=== PATIENT | female | born 1940 | race Caucasian/White ===

== ENCOUNTER 2018-06-26 14:33 | Inpatient (IN) | payer MEDICARE, OTHER, BC ==
[2018-06-26] MEDS: NALOXONE 2 MG SYG IV (14:51)
[2018-06-26 15:04] LABS: ADD MAN DIFF? NO
[2018-06-26 15:16] LABS: BASOPHIL # 0.1 10^3/ul (0.0-0.1); BASOPHILS % 0.7 % (0.0-2.0); EOSINOPHILS % 0.4 % (0.0-7.0); HEMATOCRIT 32.9 % (37.0-47.0); HEMOGLOBIN 10.1 g/dl (12.0-16.0); LYMPHOCYTES # 1.3 10^3/ul (0.8-2.9); LYMPHOCYTES % 17.9 % (15.0-51.0); MEAN CORPUSCULAR HEMOGLOBIN 30.1 pg (29.0-33.0); MEAN CORPUSCULAR HGB CONC 30.7 g/dl (32.0-37.0); MEAN CORPUSCULAR VOLUME 97.9 fl (82.0-101.0); MEAN PLATELET VOLUME 11.5 fl (7.4-10.4); MONOCYTE # 0.6 10^3/ul (0.3-0.9); NEUTROPHILS % 71.3 % (39.0-77.0); PLATELET COUNT 179 10^3/UL (140-415); RED BLOOD COUNT 3.36 10^6/ul (4.20-5.40); RED CELL DISTRIBUTION WIDTH 13.7 % (11.5-14.5)
[2018-06-26] MEDS: NALOXONE (0.4 MG/ML) INJ IV ×3 (15:24→23:32)
[2018-06-26 15:26] LABS: ALANINE AMINOTRANSFERASE 11 IU/L (13-69); ALBUMIN 3.2 g/dl (3.3-4.9); ALBUMIN/GLOBULIN RATIO 1.03; ALKALINE PHOSPHATASE 98 IU/L (42-121); ANION GAP 9 (5-13); ASPARTATE AMINO TRANSFERASE 15 IU/L (15-46); BILIRUBIN,INDIRECT 0.2 mg/dl (0-1.1); BILIRUBIN,TOTAL 0.2 mg/dl (0.2-1.3); BLOOD UREA NITROGEN 33 mg/dl (7-20); CALCIUM 8.8 mg/dl (8.4-10.2); CARBON DIOXIDE 20 mmol/L (21-31); CHLORIDE 112 mmol/L (97-110); CREATININE 1.58 mg/dl (0.44-1.00); GLUCOSE 169 mg/dl (70-220); SODIUM 141 mmol/L (135-144); TOTAL PROTEIN 6.3 g/dl (6.1-8.1)
[2018-06-26 15:30] LABS: ETHANOL < 10.0 mg/dl (0-0); POTASSIUM 6.5 mmol/L (3.5-5.1)
[2018-06-26] MEDS: SODIUM CHLORIDE 0.9% 1L BAG IV* (16:14)
[2018-06-26] MEDS: CEFEPIME 2GM/50 ML (PMX) 50 ML IVPB (16:14)
[2018-06-26 16:27] LABS: LACTIC ACID 0.6 mmol/L (0.5-2.0)
[2018-06-26 16:27] LABS: ADD UMIC YES; UR ASCORBIC ACID NEGATIVE (NEGATIVE); UR BACTERIA MANY /HPF (NONE SEEN); UR BILIRUBIN (Dip) NEGATIVE (NEGATIVE); UR BLOOD (Dip) NEGATIVE (NEGATIVE); UR CLARITY SLIGHTLY CLOUDY (CLEAR); UR COLOR YELLOW (YELLOW); UR GLUCOSE (Dip) 1+ mg/dL (NEGATIVE); UR KETONES (Dip) NEGATIVE (NEGATIVE); UR LEUKOCYTE ESTERASE (Dip) 1+ Leu/ul (NEGATIVE); UR NITRITE (Dip) POSITIVE (NEGATIVE); UR RBC 1 /HPF (0-5); UR SPECIFIC GRAVITY (Dip) 1.009 (1.003-1.030); UR TOTAL PROTEIN (Dip) 2+ mg/dl (NEGATIVE); UR UROBILINOGEN (Dip) NEGATIVE (NEGATIVE); UR WBC 114 /HPF (0-5)
[2018-06-26 16:45] LABS: AMPHETAMINE/METHAMPHETAMINE Negative (NEGATIVE); BARBITURATES Negative (NEGATIVE); BENZODIAZEPINES Negative (NEGATIVE); CANNABINOIDS Negative (NEGATIVE); COCAINE Negative (NEGATIVE); OPIATES Negative (NEGATIVE)
[2018-06-26] MEDS ORDERED: DEXTROSE 50% 50 ML SYRINGE IV (17:00)
[2018-06-26] MEDS: ALBUTEROL 0.5% (NEB) 2.5 MG/0.5 ML AMP INH (17:13)
[2018-06-26] MEDS: DEXTROSE 50% 50 ML SYRINGE IV (17:16)
[2018-06-26] MEDS: INSULIN REGULAR, HUMAN 100 UNIT/1 ML 3ML VIAL IVP (17:18)
[2018-06-26] MEDS ORDERED: ONDANSETRON 4 MG INJ IV (18:00)
[2018-06-26] MEDS ORDERED: ACETAMINOPHEN 325 MG TAB PO (18:00)
[2018-06-26] MEDS ORDERED: NACL 0.9% 3 ML SYG IV (19:00)
[2018-06-26] MEDS ORDERED: HYDROCODONE/APAP (5/325) TAB PO (19:00)
[2018-06-26] MEDS ORDERED: NITROGLYCERIN (SL) 0.4 MG TAB SL (19:00)
[2018-06-26] MEDS ORDERED: morphine 2 MG INJ IV (19:00)
[2018-06-26] MEDS ORDERED: DOCUSATE SODIUM 100 MG CAP PO (19:00)
[2018-06-26] MEDS ORDERED: MAGNESIUM HYDROXIDE 30ML CUP PO (19:00)
[2018-06-26 19:16] LABS: AADO2 Arterial 496.9 mmHg (7.0-24.0); Allen Test ACCEPTAB; Arterial Base Excess -6.2 mmol/L (-3.0-3); Arterial Blood Gas Oxygen Sat 98.1 mmHG (95.0-100.0); Arterial COHb 0.6 % (0.0-3.0); Arterial Fraction of Oxyhgb 97.2 % (93.0-99.0); Arterial HCO3 21.8 mmol/L (22.0-26.0); Arterial MetHb 0.3 % (0.0-1.5); Arterial Total Hemglobin 9.9 g/dl (12.0-18.0); Arterial pCO2 56.5 mmhg (35-45); MODE MASK - NRB; Site Right Radial
[2018-06-26 19:26] LABS: LACTIC ACID 1.1 mmol/L (0.5-2.0)
[2018-06-26] MEDS: ATORVASTATIN 20 MG TAB PO (21:00)
[2018-06-26] MEDS: SOD CHLORIDE 0.9% 1,000 ML IV ×2 (21:01→23:22)
[2018-06-26] MEDS: LORAZEPAM 2 MG INJ IV (21:18)
[2018-06-26] MEDS: LACTULOSE 30ML CUP PO (22:00)
[2018-06-26 22:01] LABS: FREE T4 (FREE THYROXINE) 1.19 ng/dl (0.78-2.44)
[2018-06-26 22:37] LABS: LACTIC ACID 0.6 mmol/L (0.5-2.0)
[2018-06-26 22:38] LABS: ANION GAP 6 (5-13); BLOOD UREA NITROGEN 31 mg/dl (7-20); CALCIUM 8.8 mg/dl (8.4-10.2); CARBON DIOXIDE 22 mmol/L (21-31); CHLORIDE 113 mmol/L (97-110); CREATININE 1.41 mg/dl (0.44-1.00); GLUCOSE 137 mg/dl (70-220); POTASSIUM 5.6 mmol/L (3.5-5.1); SODIUM 141 mmol/L (135-144)
[2018-06-26 22:39] LABS: INR 0.93; PROTIME 12.5 Sec (11.9-14.9)
[2018-06-26 22:59] LABS: AADO2 Arterial 226.2 mmHg (7.0-24.0); Allen Test ACCEPTAB; Arterial Base Excess -8.1 mmol/L (-3.0-3); Arterial Blood Gas Oxygen Sat 97.9 mmHG (95.0-100.0); Arterial COHb 0.1 % (0.0-3.0); Arterial Fraction of Oxyhgb 97.7 % (93.0-99.0); Arterial HCO3 19.8 mmol/L (22.0-26.0); Arterial MetHb 0.1 % (0.0-1.5); Arterial pCO2 52.3 mmhg (35-45); Blood Gas IEPAP 18/5; Blood Gas PS 13; MODE MASK - BIPAP; Site Left Radial
[2018-06-26] MEDS: hydrALAzine 20 MG INJ IV (23:26)
[2018-06-26] MEDS: MAGNESIUM HYDROXIDE 30ML CUP PO (23:27)
[2018-06-26] MEDS: BISACODYL 10 MG SUPP PR (23:32)
[2018-06-27 00:09] LABS: ADD MAN DIFF? NO
[2018-06-27 00:12] LABS: BASOPHIL # 0.1 10^3/ul (0.0-0.1); BASOPHILS % 0.7 % (0.0-2.0); EOSINOPHILS % 0.4 % (0.0-7.0); HEMATOCRIT 31.9 % (37.0-47.0); HEMOGLOBIN 9.9 g/dl (12.0-16.0); LYMPHOCYTES # 1.3 10^3/ul (0.8-2.9); LYMPHOCYTES % 14.2 % (15.0-51.0); MEAN CORPUSCULAR HEMOGLOBIN 30.1 pg (29.0-33.0); MEAN PLATELET VOLUME 11.2 fl (7.4-10.4); MONOCYTE # 0.8 10^3/ul (0.3-0.9); MONOCYTES % 8.5 % (0.0-11.0); NEUTROPHIL # 6.9 10^3/ul (1.6-7.5); NEUTROPHILS % 75.2 % (39.0-77.0); PLATELET COUNT 192 10^3/UL (140-415); RED BLOOD COUNT 3.29 10^6/ul (4.20-5.40); RED CELL DISTRIBUTION WIDTH 13.7 % (11.5-14.5)
[2018-06-27 00:12] LABS: WHITE BLOOD COUNT 9.2 10^3/ul (4.8-10.8)
[2018-06-27 00:20] LABS: Allen Test ACCEPTAB; Arterial Base Excess -5.3 mmol/L (-3.0-3); Arterial Blood Gas Oxygen Sat 97.7 mmHG (95.0-100.0); Arterial COHb 0.4 % (0.0-3.0); Arterial Fraction of Oxyhgb 97.1 % (93.0-99.0); Arterial HCO3 19.7 mmol/L (22.0-26.0); Arterial MetHb 0.2 % (0.0-1.5); Arterial Total Hemglobin 10.8 g/dl (12.0-18.0); Arterial pCO2 36.7 mmhg (35-45); Blood Gas IEPAP 22/6; Blood Gas PS 16; MODE MASK - BIPAP; Site Left Radial
[2018-06-27 00:31] LABS: ANION GAP 9 (5-13); BLOOD UREA NITROGEN 32 mg/dl (7-20); CALCIUM 8.7 mg/dl (8.4-10.2); CARBON DIOXIDE 20 mmol/L (21-31); CHLORIDE 113 mmol/L (97-110); CREATININE 1.36 mg/dl (0.44-1.00); GLUCOSE 149 mg/dl (70-220); POTASSIUM 5.7 mmol/L (3.5-5.1); SODIUM 142 mmol/L (135-144)
[2018-06-27] MEDS: LACTULOSE 30ML CUP PO ×3 (05:13→21:54)
[2018-06-27] MEDS: LEVOFLOXACIN 750MG/D5W (PMX) 150 ML IVPB (05:39)
[2018-06-27] MEDS: PANTOPRAZOLE 40 MG INJ IV (05:39)
[2018-06-27 05:43] LABS: ADD MAN DIFF? NO
[2018-06-27 05:59] LABS: WHITE BLOOD COUNT 7.5 10^3/ul (4.8-10.8)
[2018-06-27 05:59] LABS: BASOPHIL # 0.1 10^3/ul (0.0-0.1); BASOPHILS % 0.7 % (0.0-2.0); HEMATOCRIT 28.5 % (37.0-47.0); LYMPHOCYTES # 1.1 10^3/ul (0.8-2.9); LYMPHOCYTES % 14.1 % (15.0-51.0); MEAN CORPUSCULAR HEMOGLOBIN 30.5 pg (29.0-33.0); MEAN CORPUSCULAR HGB CONC 31.6 g/dl (32.0-37.0); MEAN CORPUSCULAR VOLUME 96.6 fl (82.0-101.0); MEAN PLATELET VOLUME 11.6 fl (7.4-10.4); MONOCYTE # 0.4 10^3/ul (0.3-0.9); MONOCYTES % 4.9 % (0.0-11.0); NEUTROPHILS % 79.2 % (39.0-77.0); PLATELET COUNT 171 10^3/UL (140-415); RED BLOOD COUNT 2.95 10^6/ul (4.20-5.40); RED CELL DISTRIBUTION WIDTH 13.5 % (11.5-14.5)
[2018-06-27 06:24] LABS: HEMOGLOBIN A1C 6.7 % (0-5.9)
[2018-06-27 06:25] LABS: ANION GAP 6 (5-13); BLOOD UREA NITROGEN 30 mg/dl (7-20); CALCIUM 8.7 mg/dl (8.4-10.2); CARBON DIOXIDE 21 mmol/L (21-31); CHLORIDE 116 mmol/L (97-110); CREATININE 1.27 mg/dl (0.44-1.00); GLUCOSE 149 mg/dl (70-220); MAGNESIUM 2.1 mg/dl (1.7-2.5); PHOSPHORUS 4.1 mg/dl (2.5-4.9); POTASSIUM 5.9 mmol/L (3.5-5.1); SODIUM 143 mmol/L (135-144)
[2018-06-27 06:27] LABS: CHOLESTEROL 128 mg/dl (100-200); LACTIC ACID 0.6 mmol/L (0.5-2.0)
[2018-06-27 06:27] LABS: CHOL/HDL RATIO 2.7 RATIO; HDL CHOLESTEROL 46 mg/dl (33-92); LDL CHOLESTEROL,CALCULATED 60 mg/dl; TRIGLYCERIDES 111 mg/dl (0-149)
[2018-06-27 06:50] LABS: THYROID STIMULATING HORMONE 0.402 MIU/L (0.465-4.680)
[2018-06-27] MEDS ORDERED: NON-FORMULARY/PATIENT OWN MED (Multivitamin with Minerals (Multivitamins with Minerals) 1 PO (09:00)
[2018-06-27] MEDS: MULTIVITAMINS/MINERALS TAB PO (09:45)
[2018-06-27] MEDS: ZINC SULFATE 220 MG CAP PO (09:45)
[2018-06-27] MEDS: NA POLYST SULFON 15 GM/60 ML BTL PO ×2 (09:45→16:34)
[2018-06-27] MEDS ORDERED: TIZANIDINE 2 MG TAB PO (10:30)
[2018-06-27 10:41] LABS: AADO2 Arterial 134.2 mmHg (7.0-24.0); Allen Test ACCEPTAB; Arterial Base Excess -5.7 mmol/L (-3.0-3); Arterial Blood Gas Oxygen Sat 92.7 mmHG (95.0-100.0); Arterial COHb 0.1 % (0.0-3.0); Arterial Fraction of Oxyhgb 92.3 % (93.0-99.0); Arterial HCO3 18.3 mmol/L (22.0-26.0); Arterial MetHb 0.3 % (0.0-1.5); Arterial Total Hemglobin 10.8 g/dl (12.0-18.0); Arterial pCO2 30.9 mmhg (35-45); MODE NASAL CANNULA; Site Right Radial
[2018-06-27] MEDS: CALCIUM GLUCONATE 10% 1 GM in DEXTROSE 5% 100 ML IVPB ×2 (10:45→18:56)
[2018-06-27] MEDS: AMLODIPINE 10 MG TAB PO (10:47)
[2018-06-27] MEDS: ASCORBIC ACID 500 MG TAB PO (10:48)
[2018-06-27] MEDS: ALBUTEROL/IPRATROPIUM (NEB) 3 ML AMP HHN (11:08)
[2018-06-27] MEDS: ONDANSETRON 4 MG INJ IV (11:19)
[2018-06-27] MEDS: LORAZEPAM 2 MG INJ IV (11:48)
[2018-06-27] MEDS: SOD CHLORIDE 0.9% 1,000 ML IV (11:53)
[2018-06-27 13:23] LABS: LACTIC ACID 0.8 mmol/L (0.5-2.0)
[2018-06-27 13:26] LABS: ANION GAP 7 (5-13); BLOOD UREA NITROGEN 25 mg/dl (7-20); CALCIUM 9.3 mg/dl (8.4-10.2); CARBON DIOXIDE 22 mmol/L (21-31); CHLORIDE 116 mmol/L (97-110); CREATININE 1.19 mg/dl (0.44-1.00); GLUCOSE 189 mg/dl (70-220); POTASSIUM 5.5 mmol/L (3.5-5.1); SODIUM 145 mmol/L (135-144)
[2018-06-27] MEDS: SOD CHLORIDE 0.45% 1,000 ML IV (16:34)
[2018-06-27] MEDS: CEFEPIME 2GM/50 ML (PMX) 50 ML IVPB ×2 (17:26→21:02)
[2018-06-27 17:34] LABS: CREATINE KINASE 88 IU/L (23-200)
[2018-06-27 17:35] LABS: LACTIC ACID 0.8 mmol/L (0.5-2.0)
[2018-06-27] MEDS: LINEZOLID 600 MG/D5W (PMX) 300 ML IVPB ×2 (21:00→23:54)
[2018-06-27] MEDS: MAGNESIUM HYDROXIDE 30ML CUP PO (21:02)
[2018-06-27] MEDS: BISACODYL 10 MG SUPP PR (21:02)
[2018-06-27] MEDS: TERAZOSIN 2 MG CAP PO (21:03)
[2018-06-27] MEDS: ATORVASTATIN 20 MG TAB PO (21:03)
[2018-06-27] MEDS: NA PHOSPHATE/BIPHOS 133 ML ENEMA PR (22:46)
[2018-06-27] MEDS: hydrALAzine 20 MG INJ IV (23:55)
[2018-06-28] MEDS: hydrALAzine 20 MG INJ IV ×2 (04:07→12:00)
[2018-06-28] MEDS: SOD CHLORIDE 0.45% 1,000 ML IV ×3 (05:20→18:40)
[2018-06-28 05:31] LABS: ADD MAN DIFF? NO
[2018-06-28 05:35] LABS: BASOPHILS % 0.5 % (0.0-2.0); EOSINOPHILS % 0.1 % (0.0-7.0); HEMATOCRIT 27.2 % (37.0-47.0); HEMOGLOBIN 8.8 g/dl (12.0-16.0); LYMPHOCYTES # 0.9 10^3/ul (0.8-2.9); LYMPHOCYTES % 10.1 % (15.0-51.0); MEAN CORPUSCULAR HEMOGLOBIN 30.4 pg (29.0-33.0); MEAN CORPUSCULAR HGB CONC 32.4 g/dl (32.0-37.0); MEAN CORPUSCULAR VOLUME 94.1 fl (82.0-101.0); MEAN PLATELET VOLUME 11.6 fl (7.4-10.4); MONOCYTE # 0.6 10^3/ul (0.3-0.9); MONOCYTES % 7.3 % (0.0-11.0); NEUTROPHIL # 6.9 10^3/ul (1.6-7.5); NEUTROPHILS % 81.2 % (39.0-77.0); PLATELET COUNT 158 10^3/UL (140-415); RED BLOOD COUNT 2.89 10^6/ul (4.20-5.40); RED CELL DISTRIBUTION WIDTH 13.2 % (11.5-14.5)
[2018-06-28 05:35] LABS: WHITE BLOOD COUNT 8.5 10^3/ul (4.8-10.8)
[2018-06-28] MEDS: PANTOPRAZOLE (EC) 40 MG TAB PO (05:56)
[2018-06-28] MEDS: LACTULOSE 30ML CUP PO ×3 (05:56→21:34)
[2018-06-28 06:30] LABS: ANION GAP 5 (5-13); BLOOD UREA NITROGEN 22 mg/dl (7-20); CARBON DIOXIDE 25 mmol/L (21-31); CHLORIDE 111 mmol/L (97-110); CREATININE 1.09 mg/dl (0.44-1.00); GLUCOSE 233 mg/dl (70-220); POTASSIUM 4.5 mmol/L (3.5-5.1); SODIUM 141 mmol/L (135-144)
[2018-06-28 06:38] LABS: CK-MB 1.56 ng/ml (0.0-2.4)
[2018-06-28 06:43] LABS: CK INDEX 1.6; CREATINE KINASE 95 IU/L (23-200)
[2018-06-28 06:50] LABS: TROPONIN-I 0.379 ng/ml (0.000-0.120)
[2018-06-28 06:57] LABS: THYROID STIMULATING HORMONE 0.255 MIU/L (0.465-4.680)
[2018-06-28] MEDS: MULTIVITAMINS/MINERALS TAB PO (08:36)
[2018-06-28] MEDS: ZINC SULFATE 220 MG CAP PO (08:36)
[2018-06-28] MEDS: ASCORBIC ACID 500 MG TAB PO (08:37)
[2018-06-28] MEDS: AMLODIPINE 10 MG TAB PO (08:37)
[2018-06-28] MEDS: ENOXAPARIN 100 MG/ML SYG SC ×2 (09:02→21:37)
[2018-06-28] MEDS: LINEZOLID 600 MG/D5W (PMX) 300 ML IVPB ×2 (10:14→22:27)
[2018-06-28] MEDS: CEFEPIME 2GM/50 ML (PMX) 50 ML IVPB ×2 (10:14→21:29)
[2018-06-28 11:10] LABS: TROPONIN-I 0.385 ng/ml (0.000-0.120)
[2018-06-28 15:43] LABS: TROPONIN-I 0.362 ng/ml (0.000-0.120)
[2018-06-28] MEDS: MAGNESIUM HYDROXIDE 30ML CUP PO (19:00)
[2018-06-28] MEDS: BISACODYL 10 MG SUPP PR (19:00)
[2018-06-28] MEDS: ISOSORBIDE DINITRATE 20 MG TAB PO (21:00)
[2018-06-28 21:14] LABS: TROPONIN-I 0.349 ng/ml (0.000-0.120)
[2018-06-28] MEDS: ATORVASTATIN 20 MG TAB PO (21:35)
[2018-06-28] MEDS: TERAZOSIN 2 MG CAP PO (21:35)
[2018-06-29] MEDS: ALBUTEROL/IPRATROPIUM (NEB) 3 ML AMP HHN ×2 (00:12→05:49)
[2018-06-29] MEDS: PANTOPRAZOLE (EC) 40 MG TAB PO (05:30)
[2018-06-29] MEDS: LACTULOSE 30ML CUP PO ×3 (05:30→22:30)
[2018-06-29] MEDS: SOD CHLORIDE 0.45% 1,000 ML IV ×2 (05:31→21:33)
[2018-06-29 06:07] LABS: ADD MAN DIFF? NO
[2018-06-29 06:10] LABS: BASOPHILS % 0.5 % (0.0-2.0); EOSINOPHILS % 0.2 % (0.0-7.0); HEMATOCRIT 25.4 % (37.0-47.0); HEMOGLOBIN 8.3 g/dl (12.0-16.0); LYMPHOCYTES # 1.3 10^3/ul (0.8-2.9); LYMPHOCYTES % 19.6 % (15.0-51.0); MEAN CORPUSCULAR HEMOGLOBIN 30.5 pg (29.0-33.0); MEAN CORPUSCULAR HGB CONC 32.7 g/dl (32.0-37.0); MEAN CORPUSCULAR VOLUME 93.4 fl (82.0-101.0); MEAN PLATELET VOLUME 12.1 fl (7.4-10.4); MONOCYTE # 0.8 10^3/ul (0.3-0.9); MONOCYTES % 12.5 % (0.0-11.0); NEUTROPHIL # 4.4 10^3/ul (1.6-7.5); NEUTROPHILS % 66.6 % (39.0-77.0); PLATELET COUNT 149 10^3/UL (140-415); RED BLOOD COUNT 2.72 10^6/ul (4.20-5.40); RED CELL DISTRIBUTION WIDTH 13.4 % (11.5-14.5)
[2018-06-29 06:10] LABS: WHITE BLOOD COUNT 6.6 10^3/ul (4.8-10.8)
[2018-06-29 07:00] LABS: TROPONIN-I 0.407 ng/ml (0.000-0.120)
[2018-06-29 08:14] LABS: ANION GAP 7 (5-13); BLOOD UREA NITROGEN 22 mg/dl (7-20); CARBON DIOXIDE 24 mmol/L (21-31); CHLORIDE 111 mmol/L (97-110); GLUCOSE 220 mg/dl (70-220); POTASSIUM 4.2 mmol/L (3.5-5.1); SODIUM 142 mmol/L (135-144)
[2018-06-29 08:15] LABS: CALCIUM 8.8 mg/dl (8.4-10.2); CREATININE 1.16 mg/dl (0.44-1.00)
[2018-06-29] MEDS: MULTIVITAMINS/MINERALS TAB PO (08:15)
[2018-06-29] MEDS: AMLODIPINE 10 MG TAB PO (08:15)
[2018-06-29] MEDS: ZINC SULFATE 220 MG CAP PO (08:15)
[2018-06-29] MEDS: ASCORBIC ACID 500 MG TAB PO (08:16)
[2018-06-29] MEDS: ISOSORBIDE DINITRATE 20 MG TAB PO ×2 (08:16→21:33)
[2018-06-29] MEDS: ENOXAPARIN 100 MG/ML SYG SC ×2 (08:18→21:58)
[2018-06-29] MEDS: CEFEPIME 2GM/50 ML (PMX) 50 ML IVPB ×2 (08:27→21:39)
[2018-06-29] MEDS: LINEZOLID 600 MG/D5W (PMX) 300 ML IVPB ×2 (09:32→22:30)
[2018-06-29] MEDS: ASPIRIN (EC) 81 MG TAB PO (09:36)
[2018-06-29 11:25] LABS: AADO2 Arterial 42.7 mmHg (7.0-24.0); Allen Test ACCEPTAB; Arterial Base Excess -3.3 mmol/L (-3.0-3); Arterial Blood Gas Oxygen Sat 95.8 mmHG (95.0-100.0); Arterial COHb 0.3 % (0.0-3.0); Arterial Fraction of Oxyhgb 95.2 % (93.0-99.0); Arterial HCO3 18.4 mmol/L (22.0-26.0); Arterial MetHb 0.3 % (0.0-1.5); Arterial pCO2 22.8 mmhg (35-45); MODE ROOM AIR; Site Right Radial
[2018-06-29] MEDS: LORAZEPAM 2 MG INJ IV ×2 (12:03→21:40)
[2018-06-29 12:21] LABS: TROPONIN-I 0.343 ng/ml (0.000-0.120)
[2018-06-29] MEDS: MAGNESIUM HYDROXIDE 30ML CUP PO (18:55)
[2018-06-29] MEDS: BISACODYL 10 MG SUPP PR (18:55)
[2018-06-29 19:37] LABS: TROPONIN-I 0.318 ng/ml (0.000-0.120)
[2018-06-29] MEDS: TERAZOSIN 2 MG CAP PO (21:32)
[2018-06-29] MEDS: ATORVASTATIN 20 MG TAB PO (21:32)
[2018-06-30 03:12] LABS: TROPONIN-I 0.338 ng/ml (0.000-0.120)
[2018-06-30] MEDS: LACTULOSE 30ML CUP PO ×3 (05:53→21:49)
[2018-06-30] MEDS: PANTOPRAZOLE (EC) 40 MG TAB PO (05:54)
[2018-06-30 06:19] LABS: ADD MAN DIFF? NO
[2018-06-30 06:31] LABS: WHITE BLOOD COUNT 9.5 10^3/ul (4.8-10.8)
[2018-06-30 06:31] LABS: BASOPHIL # 0.1 10^3/ul (0.0-0.1); BASOPHILS % 0.6 % (0.0-2.0); EOSINOPHILS # 0.1 10^3/ul (0.0-0.5); EOSINOPHILS % 0.9 % (0.0-7.0); HEMATOCRIT 25.2 % (37.0-47.0); HEMOGLOBIN 8.1 g/dl (12.0-16.0); LYMPHOCYTES # 1.4 10^3/ul (0.8-2.9); MEAN CORPUSCULAR HEMOGLOBIN 30.1 pg (29.0-33.0); MEAN CORPUSCULAR HGB CONC 32.1 g/dl (32.0-37.0); MEAN CORPUSCULAR VOLUME 93.7 fl (82.0-101.0); MEAN PLATELET VOLUME 12.1 fl (7.4-10.4); MONOCYTES % 10.4 % (0.0-11.0); NEUTROPHIL # 6.9 10^3/ul (1.6-7.5); NEUTROPHILS % 72.4 % (39.0-77.0); PLATELET COUNT 158 10^3/UL (140-415); RED BLOOD COUNT 2.69 10^6/ul (4.20-5.40); RED CELL DISTRIBUTION WIDTH 13.2 % (11.5-14.5)
[2018-06-30] MEDS: hydrALAzine 20 MG INJ IV (06:40)
[2018-06-30 06:44] LABS: LACTIC ACID 0.8 mmol/L (0.5-2.0)
[2018-06-30 06:55] LABS: ANION GAP 8 (5-13); BLOOD UREA NITROGEN 20 mg/dl (7-20); CALCIUM 8.9 mg/dl (8.4-10.2); CARBON DIOXIDE 21 mmol/L (21-31); CHLORIDE 112 mmol/L (97-110); CREATININE 1.26 mg/dl (0.44-1.00); GLUCOSE 207 mg/dl (70-220); SODIUM 141 mmol/L (135-144)
[2018-06-30 07:10] LABS: PHOSPHORUS 3.2 mg/dl (2.5-4.9)
[2018-06-30 07:26] LABS: AADO2 Arterial 115.4 mmHg (7.0-24.0); Allen Test ACCEPTAB; Arterial Base Excess -2.6 mmol/L (-3.0-3); Arterial Blood Gas Oxygen Sat 91.1 mmHG (95.0-100.0); Arterial COHb 0.5 % (0.0-3.0); Arterial Fraction of Oxyhgb 90.4 % (93.0-99.0); Arterial HCO3 20.9 mmol/L (22.0-26.0); Arterial MetHb 0.3 % (0.0-1.5); Arterial pCO2 31.6 mmhg (35-45); MODE NASAL CANNULA; Site Right Radial
[2018-06-30] MEDS: MULTIVITAMINS/MINERALS TAB PO (09:26)
[2018-06-30] MEDS: ISOSORBIDE DINITRATE 20 MG TAB PO ×2 (09:27→21:31)
[2018-06-30] MEDS: ZINC SULFATE 220 MG CAP PO (09:27)
[2018-06-30] MEDS: AMLODIPINE 10 MG TAB PO (09:27)
[2018-06-30] MEDS: ENOXAPARIN 100 MG/ML SYG SC ×2 (09:30→21:37)
[2018-06-30] MEDS: ASPIRIN (EC) 81 MG TAB PO (09:34)
[2018-06-30] MEDS: ASCORBIC ACID 500 MG TAB PO (09:34)
[2018-06-30] MEDS: LINEZOLID 600 MG/D5W (PMX) 300 ML IVPB ×2 (09:35→22:16)
[2018-06-30] MEDS: LORAZEPAM 2 MG INJ IV ×2 (09:47→18:03)
[2018-06-30] MEDS: CEFEPIME 2GM/50 ML (PMX) 50 ML IVPB ×2 (09:48→21:30)
[2018-06-30 12:18] LABS: ADD MAN DIFF? NO
[2018-06-30 12:27] LABS: HEMATOCRIT 25.4 % (37.0-47.0); HEMOGLOBIN 8.3 g/dl (12.0-16.0); LYMPHOCYTES % 13.9 % (15.0-51.0); MEAN CORPUSCULAR HEMOGLOBIN 30.4 pg (29.0-33.0); MEAN CORPUSCULAR HGB CONC 32.7 g/dl (32.0-37.0); MEAN PLATELET VOLUME 12.2 fl (7.4-10.4); MONOCYTES % 9.2 % (0.0-11.0); NEUTROPHILS % 74.6 % (39.0-77.0); PLATELET COUNT 177 10^3/UL (140-415); RED BLOOD COUNT 2.73 10^6/ul (4.20-5.40); RED CELL DISTRIBUTION WIDTH 13.4 % (11.5-14.5)
[2018-06-30 12:28] LABS: BASOPHILS % 0.4 % (0.0-2.0); EOSINOPHILS # 0.1 10^3/ul (0.0-0.5); EOSINOPHILS % 1.2 % (0.0-7.0); LYMPHOCYTES # 1.3 10^3/ul (0.8-2.9); MONOCYTE # 0.8 10^3/ul (0.3-0.9); NEUTROPHIL # 6.7 10^3/ul (1.6-7.5)
[2018-06-30 13:44] LABS: OCCULT BLOOD STOOL POSITIVE (NEGATIVE)
[2018-06-30] MEDS: MAGNESIUM HYDROXIDE 30ML CUP PO (18:06)
[2018-06-30] MEDS: PANTOPRAZOLE 40 MG INJ IV (18:06)
[2018-06-30] MEDS: SUCRALFATE (100 MG/ML) 10ML CUP PO ×2 (18:06→21:30)
[2018-06-30] MEDS: BISACODYL 10 MG SUPP PR (18:07)
[2018-06-30] MEDS: SOD CHLORIDE 0.45% 1,000 ML IV ×2 (21:30→21:36)
[2018-06-30] MEDS: ATORVASTATIN 20 MG TAB PO (21:31)
[2018-06-30] MEDS: TERAZOSIN 2 MG CAP PO (21:40)
[2018-06-30] MEDS ORDERED: COLLAGENASE 5 GM (UD JAR) TOP (22:30)
[2018-06-30] MEDS: ONDANSETRON 4 MG INJ IV (22:37)
[2018-07-01] MEDS: LORAZEPAM 2 MG INJ IV (02:55)
[2018-07-01] MEDS: LACTULOSE 30ML CUP PO ×3 (05:17→22:00)
[2018-07-01 05:39] LABS: ADD MAN DIFF? NO
[2018-07-01 05:45] LABS: BASOPHILS % 0.5 % (0.0-2.0); EOSINOPHILS # 0.2 10^3/ul (0.0-0.5); EOSINOPHILS % 2.5 % (0.0-7.0); HEMATOCRIT 25.8 % (37.0-47.0); HEMOGLOBIN 8.2 g/dl (12.0-16.0); LYMPHOCYTES # 1.4 10^3/ul (0.8-2.9); LYMPHOCYTES % 15.8 % (15.0-51.0); MEAN CORPUSCULAR HEMOGLOBIN 30.1 pg (29.0-33.0); MEAN CORPUSCULAR HGB CONC 31.8 g/dl (32.0-37.0); MEAN CORPUSCULAR VOLUME 94.9 fl (82.0-101.0); MEAN PLATELET VOLUME 12.2 fl (7.4-10.4); MONOCYTES % 11.2 % (0.0-11.0); NEUTROPHIL # 6.1 10^3/ul (1.6-7.5); NEUTROPHILS % 69.4 % (39.0-77.0); PLATELET COUNT 172 10^3/UL (140-415); RED BLOOD COUNT 2.72 10^6/ul (4.20-5.40); RED CELL DISTRIBUTION WIDTH 13.3 % (11.5-14.5)
[2018-07-01 05:45] LABS: WHITE BLOOD COUNT 8.8 10^3/ul (4.8-10.8)
[2018-07-01] MEDS: PANTOPRAZOLE 40 MG INJ IV ×2 (05:51→17:22)
[2018-07-01 06:17] LABS: ANION GAP 8 (5-13); BLOOD UREA NITROGEN 20 mg/dl (7-20); CALCIUM 8.8 mg/dl (8.4-10.2); CARBON DIOXIDE 21 mmol/L (21-31); CHLORIDE 111 mmol/L (97-110); CREATININE 1.28 mg/dl (0.44-1.00); GLUCOSE 197 mg/dl (70-220); SODIUM 140 mmol/L (135-144)
[2018-07-01] MEDS: CEFEPIME 2GM/50 ML (PMX) 50 ML IVPB ×2 (09:09→22:03)
[2018-07-01] MEDS: AMLODIPINE 10 MG TAB PO (09:10)
[2018-07-01] MEDS: SUCRALFATE (100 MG/ML) 10ML CUP PO ×4 (09:10→20:38)
[2018-07-01] MEDS: LINEZOLID 600 MG/D5W (PMX) 300 ML IVPB ×2 (09:10→20:29)
[2018-07-01] MEDS: ISOSORBIDE DINITRATE 20 MG TAB PO ×2 (09:10→20:39)
[2018-07-01] MEDS: ZINC SULFATE 220 MG CAP PO (09:10)
[2018-07-01] MEDS: BALSAM PERU/CASTOR OIL 60 GM TUBE TOP (09:11)
[2018-07-01] MEDS: ASPIRIN (EC) 81 MG TAB PO (09:11)
[2018-07-01] MEDS: MULTIVITAMINS/MINERALS TAB PO (09:11)
[2018-07-01] MEDS: ASCORBIC ACID 500 MG TAB PO (09:11)
[2018-07-01] MEDS: COLLAGENASE 5 GM (UD JAR) TOP (09:11)
[2018-07-01] MEDS: ENOXAPARIN 100 MG/ML SYG SC ×2 (09:17→20:44)
[2018-07-01] MEDS: ONDANSETRON 4 MG INJ IV (10:08)
[2018-07-01] MEDS: ACETAMINOPHEN 325 MG TAB PO (10:20)
[2018-07-01] MEDS ORDERED: ALBUTEROL/IPRATROPIUM (NEB) 3 ML AMP NEB (11:00)
[2018-07-01] MEDS: INSULIN ASPART [NOVOLOG] 3 ML PEN SC ×3 (12:37→20:45)
[2018-07-01] MEDS: SOD CHLORIDE 0.45% 1,000 ML IV ×2 (13:20)
[2018-07-01] MEDS ORDERED: MAGNESIUM HYDROXIDE 30ML CUP PO (19:00)
[2018-07-01] MEDS: ATORVASTATIN 20 MG TAB PO (20:39)
[2018-07-01] MEDS: TERAZOSIN 2 MG CAP PO (20:39)
[2018-07-01] MEDS: traMADol 50 MG TAB PO (20:49)
[2018-07-02] MEDS: SOD CHLORIDE 0.45% 1,000 ML IV ×2 (02:40→15:48)
[2018-07-02] MEDS: ACCU-CHEK XX (02:43)
[2018-07-02 05:37] LABS: ADD MAN DIFF? NO
[2018-07-02 05:43] LABS: WHITE BLOOD COUNT 8.5 10^3/ul (4.8-10.8)
[2018-07-02 05:43] LABS: BASOPHILS % 0.5 % (0.0-2.0); EOSINOPHILS # 0.3 10^3/ul (0.0-0.5); EOSINOPHILS % 3.2 % (0.0-7.0); HEMATOCRIT 25.2 % (37.0-47.0); LYMPHOCYTES # 1.4 10^3/ul (0.8-2.9); LYMPHOCYTES % 16.5 % (15.0-51.0); MEAN CORPUSCULAR HEMOGLOBIN 30.1 pg (29.0-33.0); MEAN CORPUSCULAR HGB CONC 31.7 g/dl (32.0-37.0); MEAN CORPUSCULAR VOLUME 94.7 fl (82.0-101.0); MEAN PLATELET VOLUME 12.3 fl (7.4-10.4); MONOCYTE # 0.8 10^3/ul (0.3-0.9); MONOCYTES % 9.7 % (0.0-11.0); NEUTROPHIL # 5.9 10^3/ul (1.6-7.5); NEUTROPHILS % 69.5 % (39.0-77.0); PLATELET COUNT 161 10^3/UL (140-415); RED BLOOD COUNT 2.66 10^6/ul (4.20-5.40); RED CELL DISTRIBUTION WIDTH 13.2 % (11.5-14.5)
[2018-07-02 05:58] LABS: ANION GAP 6 (5-13); BLOOD UREA NITROGEN 20 mg/dl (7-20); CALCIUM 8.5 mg/dl (8.4-10.2); CARBON DIOXIDE 21 mmol/L (21-31); CHLORIDE 114 mmol/L (97-110); CREATININE 1.39 mg/dl (0.44-1.00); GLUCOSE 166 mg/dl (70-220); POTASSIUM 3.8 mmol/L (3.5-5.1); SODIUM 141 mmol/L (135-144)
[2018-07-02] MEDS: LACTULOSE 30ML CUP PO ×3 (06:00→22:19)
[2018-07-02] MEDS: PANTOPRAZOLE 40 MG INJ IV ×2 (06:18→17:12)
[2018-07-02] MEDS ORDERED: CEFAZOLIN 1 GM INJ (07:00)
[2018-07-02] MEDS ORDERED: CEFAZOLIN 1 GM/50 ML (PMX) 50 ML IVPB (07:23)
[2018-07-02] MEDS ORDERED: BUPIVACAINE 0.5% (SDV) 30 ML INJ (07:23)
[2018-07-02] MEDS ORDERED: LIDOCAINE 2% (MDV) 20 ML INJ (07:23)
[2018-07-02] MEDS ORDERED: SOD CHLORIDE 0.9% 500 ML (07:23)
[2018-07-02] MEDS ORDERED: MEPERIDINE 25 MG INJ IV (07:30)
[2018-07-02] MEDS ORDERED: ONDANSETRON 4 MG INJ IV (07:30)
[2018-07-02] MEDS: POLYMYXIN/BACITRACIN 1L IRRIG IRR (07:30)
[2018-07-02] MEDS ORDERED: DIPHENHYDRAMINE 50 MG INJ IV (07:30)
[2018-07-02] MEDS ORDERED: HYDROmorphONE 1 MG/5 ML IV SYRINGE IV ×2 (07:30)
[2018-07-02] MEDS ORDERED: PROPOFOL 40 ML (07:32)
[2018-07-02] MEDS ORDERED: MIDAZOLAM 1 MG/ML 2 ML INJ (07:32)
[2018-07-02] MEDS ORDERED: FENTAnyl 50 MCG/ML VIAL (07:32)
[2018-07-02] MEDS ORDERED: ONDANSETRON 4 MG INJ (07:32)
[2018-07-02] MEDS ORDERED: IODIXANOL LOCM 50 ML BTL (07:49)
[2018-07-02] MEDS: INSULIN ASPART [NOVOLOG] 3 ML PEN SC ×4 (08:00→22:57)
[2018-07-02] MEDS: BALSAM PERU/CASTOR OIL 60 GM TUBE TOP (09:00)
[2018-07-02] MEDS: COLLAGENASE 5 GM (UD JAR) TOP (09:00)
[2018-07-02] MEDS: HYDROmorphONE 1 MG/5 ML IV SYRINGE IV (09:23)
[2018-07-02] MEDS: SUCRALFATE (100 MG/ML) 10ML CUP PO ×4 (10:15→22:17)
[2018-07-02] MEDS: MULTIVITAMINS/MINERALS TAB PO (10:16)
[2018-07-02] MEDS: ASPIRIN (EC) 81 MG TAB PO (10:16)
[2018-07-02] MEDS: ZINC SULFATE 220 MG CAP PO (10:16)
[2018-07-02] MEDS: AMLODIPINE 10 MG TAB PO (10:19)
[2018-07-02] MEDS: ISOSORBIDE DINITRATE 20 MG TAB PO ×2 (10:19→22:19)
[2018-07-02] MEDS: ASCORBIC ACID 500 MG TAB PO (10:19)
[2018-07-02] MEDS: CEFEPIME 2GM/50 ML (PMX) 50 ML IVPB (10:24)
[2018-07-02] MEDS: LINEZOLID 600 MG/D5W (PMX) 300 ML IVPB ×2 (10:24→22:28)
[2018-07-02] MEDS: ONDANSETRON 4 MG INJ IV (10:44)
[2018-07-02] MEDS ORDERED: CEFAZOLIN 1 GM INJ IVPB (14:00)
[2018-07-02] MEDS: CEFTRIAXONE 1 GM/50 ML (PMX) 50 ML IVPB (14:16)
[2018-07-02] MEDS ORDERED: METOCLOPRAMIDE 10 MG INJ IV (14:30)
[2018-07-02] MEDS: METOCLOPRAMIDE 10 MG INJ IV ×2 (15:46→22:32)
[2018-07-02] MEDS: BISACODYL 10 MG SUPP PR (17:12)
[2018-07-02] MEDS: ATORVASTATIN 20 MG TAB PO (22:18)
[2018-07-02] MEDS: TERAZOSIN 2 MG CAP PO (22:18)
[2018-07-02] MEDS: LORAZEPAM 2 MG INJ IV (23:08)
[2018-07-03] MEDS: ACCU-CHEK XX (02:19)
[2018-07-03] MEDS: SOD CHLORIDE 0.45% 1,000 ML IV ×2 (02:20→18:29)
[2018-07-03] MEDS: morphine 2 MG INJ IV (04:02)
[2018-07-03 05:35] LABS: ADD MAN DIFF? NO
[2018-07-03] MEDS: PANTOPRAZOLE 40 MG INJ IV ×2 (05:40→17:23)
[2018-07-03] MEDS: LACTULOSE 30ML CUP PO ×3 (05:40→21:21)
[2018-07-03 05:42] LABS: WHITE BLOOD COUNT 10.2 10^3/ul (4.8-10.8)
[2018-07-03 05:42] LABS: BASOPHILS % 0.3 % (0.0-2.0); EOSINOPHILS # 0.1 10^3/ul (0.0-0.5); EOSINOPHILS % 0.7 % (0.0-7.0); HEMATOCRIT 25.1 % (37.0-47.0); LYMPHOCYTES # 1.2 10^3/ul (0.8-2.9); LYMPHOCYTES % 12.1 % (15.0-51.0); MEAN CORPUSCULAR HEMOGLOBIN 30.1 pg (29.0-33.0); MEAN CORPUSCULAR HGB CONC 31.9 g/dl (32.0-37.0); MEAN CORPUSCULAR VOLUME 94.4 fl (82.0-101.0); MONOCYTE # 0.9 10^3/ul (0.3-0.9); MONOCYTES % 8.5 % (0.0-11.0); NEUTROPHIL # 7.9 10^3/ul (1.6-7.5); NEUTROPHILS % 77.5 % (39.0-77.0); PLATELET COUNT 180 10^3/UL (140-415); RED BLOOD COUNT 2.66 10^6/ul (4.20-5.40); RED CELL DISTRIBUTION WIDTH 13.1 % (11.5-14.5)
[2018-07-03 06:20] LABS: ANION GAP 8 (5-13); BLOOD UREA NITROGEN 20 mg/dl (7-20); CALCIUM 8.4 mg/dl (8.4-10.2); CARBON DIOXIDE 19 mmol/L (21-31); CHLORIDE 111 mmol/L (97-110); CREATININE 1.43 mg/dl (0.44-1.00); GLUCOSE 194 mg/dl (70-220); POTASSIUM 3.5 mmol/L (3.5-5.1); SODIUM 138 mmol/L (135-144)
[2018-07-03] MEDS: INSULIN ASPART [NOVOLOG] 3 ML PEN SC ×4 (07:47→21:42)
[2018-07-03] MEDS: SUCRALFATE (100 MG/ML) 10ML CUP PO ×4 (08:08→21:18)
[2018-07-03] MEDS: ASPIRIN (EC) 81 MG TAB PO (08:09)
[2018-07-03] MEDS: ISOSORBIDE DINITRATE 20 MG TAB PO ×2 (08:09→21:18)
[2018-07-03] MEDS: ZINC SULFATE 220 MG CAP PO (08:09)
[2018-07-03] MEDS: ONDANSETRON 4 MG INJ IV (08:09)
[2018-07-03] MEDS: ASCORBIC ACID 500 MG TAB PO (08:09)
[2018-07-03] MEDS: COLLAGENASE 5 GM (UD JAR) TOP (08:09)
[2018-07-03] MEDS: AMLODIPINE 10 MG TAB PO (08:09)
[2018-07-03] MEDS: LINEZOLID 600 MG/D5W (PMX) 300 ML IVPB (08:10)
[2018-07-03] MEDS: BALSAM PERU/CASTOR OIL 60 GM TUBE TOP (08:11)
[2018-07-03] MEDS: MULTIVITAMINS/MINERALS TAB PO (10:21)
[2018-07-03] MEDS: POTASSIUM CHLORIDE 20 MEQ POWDER FOR ORAL SOLN PO (10:21)
[2018-07-03] MEDS: PREGABALIN 100 MG CAP PO ×2 (10:21→21:18)
[2018-07-03] MEDS: CEFTRIAXONE 1 GM/50 ML (PMX) 50 ML IVPB (13:16)
[2018-07-03] MEDS: ATORVASTATIN 20 MG TAB PO (21:18)
[2018-07-03] MEDS: TERAZOSIN 2 MG CAP PO (21:18)
[2018-07-03] MEDS: MIRTAZAPINE 15 MG TAB PO (21:19)
[2018-07-03] MEDS: morphine LIQ (10 MG/5 ML) CUP PO (22:55)
[2018-07-04] MEDS: ACCU-CHEK XX (02:03)
[2018-07-04 05:37] LABS: ADD MAN DIFF? NO
[2018-07-04 05:39] LABS: BASOPHIL # 0.1 10^3/ul (0.0-0.1); BASOPHILS % 0.5 % (0.0-2.0); EOSINOPHILS # 0.3 10^3/ul (0.0-0.5); EOSINOPHILS % 2.9 % (0.0-7.0); HEMATOCRIT 27.4 % (37.0-47.0); HEMOGLOBIN 8.8 g/dl (12.0-16.0); LYMPHOCYTES # 2.2 10^3/ul (0.8-2.9); MEAN CORPUSCULAR HEMOGLOBIN 30.6 pg (29.0-33.0); MEAN CORPUSCULAR HGB CONC 32.1 g/dl (32.0-37.0); MEAN CORPUSCULAR VOLUME 95.1 fl (82.0-101.0); MEAN PLATELET VOLUME 10.9 fl (7.4-10.4); MONOCYTE # 0.8 10^3/ul (0.3-0.9); MONOCYTES % 8.1 % (0.0-11.0); NEUTROPHIL # 6.5 10^3/ul (1.6-7.5); NEUTROPHILS % 65.6 % (39.0-77.0); PLATELET COUNT 197 10^3/UL (140-415); RED BLOOD COUNT 2.88 10^6/ul (4.20-5.40); RED CELL DISTRIBUTION WIDTH 13.2 % (11.5-14.5)
[2018-07-04] MEDS: PANTOPRAZOLE 40 MG INJ IV ×2 (05:58→17:13)
[2018-07-04] MEDS: LACTULOSE 30ML CUP PO ×3 (05:58→21:55)
[2018-07-04 06:18] LABS: ANION GAP 7 (5-13); BLOOD UREA NITROGEN 19 mg/dl (7-20); CALCIUM 8.6 mg/dl (8.4-10.2); CARBON DIOXIDE 21 mmol/L (21-31); CHLORIDE 112 mmol/L (97-110); CREATININE 1.48 mg/dl (0.44-1.00); GLUCOSE 137 mg/dl (70-220); POTASSIUM 3.9 mmol/L (3.5-5.1); SODIUM 140 mmol/L (135-144)
[2018-07-04] MEDS: SOD CHLORIDE 0.45% 1,000 ML IV ×2 (08:09→23:00)
[2018-07-04] MEDS: INSULIN ASPART [NOVOLOG] 3 ML PEN SC ×4 (08:11→20:47)
[2018-07-04] MEDS: ASCORBIC ACID 500 MG TAB PO (09:00)
[2018-07-04] MEDS: ASPIRIN (EC) 81 MG TAB PO (09:00)
[2018-07-04] MEDS: ISOSORBIDE DINITRATE 20 MG TAB PO ×2 (09:00→20:33)
[2018-07-04] MEDS: PREGABALIN 100 MG CAP PO ×2 (09:00→20:33)
[2018-07-04] MEDS: ZINC SULFATE 220 MG CAP PO (09:00)
[2018-07-04] MEDS: SUCRALFATE (100 MG/ML) 10ML CUP PO ×4 (09:00→20:33)
[2018-07-04] MEDS: MULTIVITAMINS/MINERALS TAB PO (09:00)
[2018-07-04] MEDS: AMLODIPINE 10 MG TAB PO (09:00)
[2018-07-04] MEDS: BALSAM PERU/CASTOR OIL 60 GM TUBE TOP (09:10)
[2018-07-04] MEDS: COLLAGENASE 5 GM (UD JAR) TOP (09:12)
[2018-07-04] MEDS ORDERED: NYSTATIN 30 GM POWDER BTL TOP (13:00)
[2018-07-04] MEDS: NYSTATIN 30 GM POWDER BTL TOP (14:05)
[2018-07-04] MEDS: CEFTRIAXONE 1 GM/50 ML (PMX) 50 ML IVPB (15:08)
[2018-07-04] MEDS: MIRTAZAPINE 15 MG TAB PO (20:33)
[2018-07-04] MEDS: ATORVASTATIN 20 MG TAB PO (20:33)
[2018-07-04] MEDS: TERAZOSIN 2 MG CAP PO (20:34)
[2018-07-05] MEDS: morphine LIQ (10 MG/5 ML) CUP PO (00:17)
[2018-07-05] MEDS: ACCU-CHEK XX (01:52)
[2018-07-05] MEDS: LACTULOSE 30ML CUP PO ×2 (05:59→13:42)
[2018-07-05] MEDS: PANTOPRAZOLE 40 MG INJ IV (05:59)
[2018-07-05] MEDS: INSULIN ASPART [NOVOLOG] 3 ML PEN SC ×3 (07:39→16:59)
[2018-07-05] MEDS: NYSTATIN 30 GM POWDER BTL TOP (08:30)
[2018-07-05] MEDS: PREGABALIN 100 MG CAP PO (08:30)
[2018-07-05] MEDS: ISOSORBIDE DINITRATE 20 MG TAB PO (08:30)
[2018-07-05] MEDS: ASPIRIN (EC) 81 MG TAB PO (08:30)
[2018-07-05] MEDS: BALSAM PERU/CASTOR OIL 60 GM TUBE TOP (08:30)
[2018-07-05] MEDS: COLLAGENASE 5 GM (UD JAR) TOP (08:30)
[2018-07-05] MEDS: AMLODIPINE 10 MG TAB PO (08:31)
[2018-07-05] MEDS: ASCORBIC ACID 500 MG TAB PO (08:31)
[2018-07-05] MEDS: SUCRALFATE (100 MG/ML) 10ML CUP PO ×3 (08:31→16:55)
[2018-07-05] MEDS: MULTIVITAMINS/MINERALS TAB PO (08:31)
[2018-07-05] MEDS: ZINC SULFATE 220 MG CAP PO (08:31)
[2018-07-05 09:08] LABS: ANION GAP 3 (5-13); BLOOD UREA NITROGEN 23 mg/dl (7-20); CALCIUM 8.5 mg/dl (8.4-10.2); CARBON DIOXIDE 23 mmol/L (21-31); CHLORIDE 113 mmol/L (97-110); CREATININE 1.37 mg/dl (0.44-1.00); GLUCOSE 153 mg/dl (70-220); MAGNESIUM 1.9 mg/dl (1.7-2.5); PHOSPHORUS 2.9 mg/dl (2.5-4.9); POTASSIUM 3.9 mmol/L (3.5-5.1); SODIUM 139 mmol/L (135-144)
[2018-07-05] MEDS ORDERED: BARIUM SULFATE 135 ML (E-Z HD) PO (09:23)
[2018-07-05] MEDS: SOD CHLORIDE 0.45% 1,000 ML IV (10:17)
[2018-07-05] MEDS: CEFTRIAXONE 1 GM/50 ML (PMX) 50 ML IVPB (13:44)
[2018-07-05] MEDS: PANTOPRAZOLE (EC) 40 MG TAB PO (17:02)
== END 2018-07-05 18:24 | DRG 853 ==
LOC: E/R 14:33 → 6WM 06-27 18:20 → ICU 23:02
PROC: 0JH604Z Insertion of Pacemaker, Single Chamber into Chest Subcutaneous Tissue and Fascia, Open Approach (ICD-10-PCS; principal; 2018-07-02 07:08)
PROC: 02HK3JZ Insertion of Pacemaker Lead into Right Ventricle, Percutaneous Approach (ICD-10-PCS; 2018-07-02 07:08)
PROC: 0DB68ZX Excision of Stomach, Via Natural or Artificial Opening Endoscopic, Diagnostic (ICD-10-PCS; 2018-07-02 07:08)
DX: A41.9 Sepsis, unspecified organism (principal); L89.153 Pressure ulcer of sacral region, stage 3; J96.02 Acute respiratory failure with hypercapnia; J96.01 Acute respiratory failure with hypoxia; G92 Toxic encephalopathy; J18.9 Pneumonia, unspecified organism; I21.A1 Myocardial infarction type 2; K29.71 Gastritis, unspecified, with bleeding; N17.9 Acute kidney failure, unspecified; N39.0 Urinary tract infection, site not specified; B96.20 Unspecified Escherichia coli [E. coli] as the cause of diseases classified elsewhere; D64.9 Anemia, unspecified; E87.5 Hyperkalemia; E11.9 Type 2 diabetes mellitus without complications; I44.1 Atrioventricular block, second degree; I10 Essential (primary) hypertension; J06.9 Acute upper respiratory infection, unspecified; K31.89 Other diseases of stomach and duodenum; R65.20 Severe sepsis without septic shock; R00.1 Bradycardia, unspecified; R13.10 Dysphagia, unspecified; T40.2X1A Poisoning by other opioids, accidental (unintentional), initial encounter; Z66 Do not resuscitate; Z89.511 Acquired absence of right leg below knee; Z79.84 Long term (current) use of oral hypoglycemic drugs
CPT/HCPCS: 36415; 36600; 70450; 71045; 74230; 80048; 80053; 80061; 80307; 81001; 82270; 82550; 82553; 82803; 82962; 83036; 83605; 83735; 84100; 84439; 84443; 84484; 85025; 85610; 85730; 87040; 87086; 88305; 88312; 92526; 92610; 92611; 93005; 93306; 94640; 94660; 94664; 96374; 96375; 97110; 97162; 97166; 97530; 97535; 99291-25

== ENCOUNTER 2018-07-21 13:04 | Inpatient (IN) | payer MEDICARE, OTHER ==
[2018-07-21 13:16] LABS: ADD MAN DIFF? NO
[2018-07-21 13:27] LABS: BASOPHILS % 0.4 % (0.0-2.0); EOSINOPHILS # 0.1 10^3/ul (0.0-0.5); EOSINOPHILS % 0.8 % (0.0-7.0); HEMATOCRIT 28.7 % (37.0-47.0); HEMOGLOBIN 8.7 g/dl (12.0-16.0); LYMPHOCYTES # 0.6 10^3/ul (0.8-2.9); LYMPHOCYTES % 8.6 % (15.0-51.0); MEAN CORPUSCULAR HEMOGLOBIN 29.6 pg (29.0-33.0); MEAN CORPUSCULAR HGB CONC 30.3 g/dl (32.0-37.0); MEAN CORPUSCULAR VOLUME 97.6 fl (82.0-101.0); MEAN PLATELET VOLUME 11.7 fl (7.4-10.4); MONOCYTE # 0.4 10^3/ul (0.3-0.9); MONOCYTES % 5.4 % (0.0-11.0); NEUTROPHIL # 6.1 10^3/ul (1.6-7.5); NEUTROPHILS % 84.2 % (39.0-77.0); PLATELET COUNT 170 10^3/UL (140-415); RED BLOOD COUNT 2.94 10^6/ul (4.20-5.40); RED CELL DISTRIBUTION WIDTH 14.6 % (11.5-14.5)
[2018-07-21 13:27] LABS: WHITE BLOOD COUNT 7.3 10^3/ul (4.8-10.8)
[2018-07-21 13:39] LABS: HEMOGLOBIN A1C 6.9 % (0-5.9)
[2018-07-21 13:43] LABS: ALANINE AMINOTRANSFERASE 17 IU/L (13-69); ALBUMIN 3.3 g/dl (3.3-4.9); ALBUMIN/GLOBULIN RATIO 1.17; ALKALINE PHOSPHATASE 119 IU/L (42-121); ANION GAP 10 (5-13); ASPARTATE AMINO TRANSFERASE 14 IU/L (15-46); BILIRUBIN,INDIRECT 0.1 mg/dl (0-1.1); BILIRUBIN,TOTAL 0.1 mg/dl (0.2-1.3); BLOOD UREA NITROGEN 24 mg/dl (7-20); CARBON DIOXIDE 26 mmol/L (21-31); CHLORIDE 105 mmol/L (97-110); CHOL/HDL RATIO 2.5 RATIO; CHOLESTEROL 157 mg/dl (100-200); CREATINE KINASE 40 IU/L (23-200); CREATININE 1.37 mg/dl (0.44-1.00); GLUCOSE 188 mg/dl (70-220); HDL CHOLESTEROL 61 mg/dl (33-92); LDL CHOLESTEROL,CALCULATED 63 mg/dl; LIPASE 32 U/L (23-300); SODIUM 141 mmol/L (135-144); TOTAL PROTEIN 6.1 g/dl (6.1-8.1); TRIGLYCERIDES 164 mg/dl (0-149)
[2018-07-21] MEDS: IODIXANOL LOCM 100 ML BTL (13:45)
[2018-07-21] MEDS: SOD CHLORIDE 0.9% 100 ML (13:46)
[2018-07-21 13:47] LABS: INR 0.86; PARTIAL THROMBOPLASTIN TIME 29.7 Sec (23.0-35.0); PROTIME 11.8 Sec (11.9-14.9); PT RATIO 0.9
[2018-07-21 13:49] LABS: Allen Test ACCEPTAB; Arterial Base Excess 0.4 mmol/L (-3.0-3); Arterial Blood Gas Oxygen Sat 98.5 mmHG (95.0-100.0); Arterial COHb 2.7 % (0.0-3.0); Arterial Fraction of Oxyhgb 95.6 % (93.0-99.0); Arterial HCO3 27.8 mmol/L (22.0-26.0); Arterial MetHb 0.2 % (0.0-1.5); Arterial pCO2 60.4 mmhg (35-45); MODE MASK - NRB; Site Right Radial
[2018-07-21 13:54] LABS: ETHANOL < 10.0 mg/dl (0-0)
[2018-07-21 13:55] LABS: CK-MB 1.18 ng/ml (0.0-2.4); TROPONIN-I 0.051 ng/ml (0.000-0.120)
[2018-07-21] MEDS: SOD CHLORIDE 0.9% 1,000 ML IV (14:54)
[2018-07-21 14:55] LABS: ADD UMIC YES; UR ASCORBIC ACID 40 mg/dL (NEGATIVE); UR BILIRUBIN (Dip) NEGATIVE (NEGATIVE); UR BLOOD (Dip) NEGATIVE (NEGATIVE); UR CLARITY CLEAR (CLEAR); UR COLOR YELLOW (YELLOW); UR GLUCOSE (Dip) 1+ mg/dL (NEGATIVE); UR KETONES (Dip) NEGATIVE (NEGATIVE); UR LEUKOCYTE ESTERASE (Dip) NEGATIVE Leu/ul (NEGATIVE); UR NITRITE (Dip) NEGATIVE (NEGATIVE); UR RBC 1 /HPF (0-5); UR SPECIFIC GRAVITY (Dip) 1.024 (1.003-1.030); UR TOTAL PROTEIN (Dip) 3+ mg/dl (NEGATIVE); UR UROBILINOGEN (Dip) NEGATIVE (NEGATIVE); UR WBC 6 /HPF (0-5)
[2018-07-21] MEDS ORDERED: NACL 0.9% 3 ML SYG IV (15:00)
[2018-07-21 15:12] LABS: AMPHETAMINE/METHAMPHETAMINE Negative (NEGATIVE); BARBITURATES Negative (NEGATIVE); BENZODIAZEPINES Negative (NEGATIVE); CANNABINOIDS Negative (NEGATIVE); COCAINE Negative (NEGATIVE); OPIATES Positive (NEGATIVE)
[2018-07-21] MEDS ORDERED: BISACODYL 10 MG SUPP PR (15:30)
[2018-07-21] MEDS ORDERED: MAGNESIUM HYDROXIDE 30ML CUP PO (15:30)
[2018-07-21] MEDS ORDERED: GLUCOSE GEL 15 GRAM TUBE BUCCAL (16:00)
[2018-07-21] MEDS ORDERED: GLUCAGON 1 MG INJ IM (16:00)
[2018-07-21] MEDS ORDERED: DEXTROSE 50% 50 ML SYRINGE IV ×2 (16:00)
[2018-07-21] MEDS ORDERED: GLUCOSE GEL 15 GRAM TUBE PO ×2 (16:00)
[2018-07-21 16:28] LABS: ANION GAP 7 (5-13); BLOOD UREA NITROGEN 22 mg/dl (7-20); CALCIUM 8.7 mg/dl (8.4-10.2); CARBON DIOXIDE 26 mmol/L (21-31); CHLORIDE 108 mmol/L (97-110); CREATININE 1.25 mg/dl (0.44-1.00); GLUCOSE 164 mg/dl (70-220); MAGNESIUM 2.1 mg/dl (1.7-2.5); PHOSPHORUS 5.5 mg/dl (2.5-4.9); SODIUM 141 mmol/L (135-144)
[2018-07-21 16:31] LABS: POTASSIUM 5.8 mmol/L (3.5-5.1)
[2018-07-21 17:27] LABS: LACTIC ACID 0.7 mmol/L (0.5-2.0)
[2018-07-21] MEDS: INSULIN ASPART [NOVOLOG] 3 ML PEN SC ×2 (17:35→21:00)
[2018-07-21 17:43] LABS: TROPONIN-I 0.121 ng/ml (0.000-0.120)
[2018-07-21] MEDS ORDERED: FLUCONAZOLE 150 MG TAB PO (18:30)
[2018-07-21] MEDS: ATORVASTATIN 20 MG TAB PO (21:00)
[2018-07-21] MEDS: TERAZOSIN 2 MG CAP PO (21:00)
[2018-07-21] MEDS: SENNA TAB PO (21:00)
[2018-07-21] MEDS: PREGABALIN 100 MG CAP PO (21:00)
[2018-07-21] MEDS: HEPARIN 5,000 UNIT/1 ML VIAL SC (21:32)
[2018-07-21] MEDS: hydrALAzine 20 MG INJ IV (22:40)
[2018-07-22] MEDS: ONDANSETRON 4 MG INJ IV (00:41)
[2018-07-22 02:00] LABS: TROPONIN-I 0.196 ng/ml (0.000-0.120)
[2018-07-22] MEDS: ACCU-CHEK XX (02:00)
[2018-07-22 04:49] LABS: ADD MAN DIFF? NO
[2018-07-22 04:54] LABS: WHITE BLOOD COUNT 5.7 10^3/ul (4.8-10.8)
[2018-07-22 04:54] LABS: ABNORMAL IP MESSAGE 1; BASOPHILS % 0.2 % (0.0-2.0); EOSINOPHILS % 0.3 % (0.0-7.0); HEMATOCRIT 25.7 % (37.0-47.0); LYMPHOCYTES # 0.5 10^3/ul (0.8-2.9); LYMPHOCYTES % 8.5 % (15.0-51.0); MEAN CORPUSCULAR HEMOGLOBIN 29.7 pg (29.0-33.0); MEAN CORPUSCULAR HGB CONC 31.1 g/dl (32.0-37.0); MEAN CORPUSCULAR VOLUME 95.5 fl (82.0-101.0); MEAN PLATELET VOLUME 11.9 fl (7.4-10.4); MONOCYTE # 0.3 10^3/ul (0.3-0.9); MONOCYTES % 5.7 % (0.0-11.0); NEUTROPHIL # 4.9 10^3/ul (1.6-7.5); PLATELET COUNT 145 10^3/UL (140-415); RED BLOOD COUNT 2.69 10^6/ul (4.20-5.40); RED CELL DISTRIBUTION WIDTH 14.6 % (11.5-14.5)
[2018-07-22 04:58] LABS: POSITIVE DIFF @See below
[2018-07-22 05:12] LABS: AADO2 Arterial 163.3 mmHg (7.0-24.0); Allen Test ACCEPTAB; Arterial Base Excess -0.5 mmol/L (-3.0-3); Arterial Blood Gas Oxygen Sat 97.8 mmHG (95.0-100.0); Arterial Fraction of Oxyhgb 96.5 % (93.0-99.0); Arterial HCO3 26.9 mmol/L (22.0-26.0); Arterial MetHb 0.3 % (0.0-1.5); Arterial pCO2 57.1 mmhg (35-45); Blood Gas IEPAP 15/5; MODE MASK - BIPAP; Site Right Radial
[2018-07-22 05:16] LABS: ALANINE AMINOTRANSFERASE 14 IU/L (13-69); ALBUMIN 2.6 g/dl (3.3-4.9); ALBUMIN/GLOBULIN RATIO 0.96; ALKALINE PHOSPHATASE 101 IU/L (42-121); ANION GAP 3 (5-13); ASPARTATE AMINO TRANSFERASE 14 IU/L (15-46); BLOOD UREA NITROGEN 20 mg/dl (7-20); CALCIUM 8.5 mg/dl (8.4-10.2); CARBON DIOXIDE 26 mmol/L (21-31); CHLORIDE 111 mmol/L (97-110); CREATININE 1.18 mg/dl (0.44-1.00); GLUCOSE 140 mg/dl (70-220); PHOSPHORUS 4.7 mg/dl (2.5-4.9); POTASSIUM 5.4 mmol/L (3.5-5.1); SODIUM 140 mmol/L (135-144); TOTAL PROTEIN 5.3 g/dl (6.1-8.1)
[2018-07-22] MEDS: PANTOPRAZOLE 40 MG INJ IV (05:31)
[2018-07-22] MEDS ORDERED: PANTOPRAZOLE (EC) 40 MG TAB PO (06:00)
[2018-07-22 07:06] LABS: HEMOGLOBIN A1C 6.9 % (0-5.9)
[2018-07-22] MEDS: INSULIN ASPART [NOVOLOG] 3 ML PEN SC ×5 (07:35→21:28)
[2018-07-22] MEDS: SENNA TAB PO ×2 (08:39→20:52)
[2018-07-22] MEDS: LISINOPRIL 20 MG TAB PO (08:39)
[2018-07-22] MEDS: AMLODIPINE 10 MG TAB PO (08:39)
[2018-07-22] MEDS: PREGABALIN 100 MG CAP PO ×2 (08:39→20:52)
[2018-07-22] MEDS: HEPARIN 5,000 UNIT/1 ML VIAL SC ×2 (08:59→21:28)
[2018-07-22] MEDS: NICOTINE (21 MG/24 HR) PATCH TRANSDERM (11:30)
[2018-07-22] MEDS: FLUCONAZOLE 150 MG TAB PO (11:47)
[2018-07-22 12:49] LABS: TROPONIN-I 0.218 ng/ml (0.000-0.120)
[2018-07-22] MEDS: ALBUTEROL/IPRATROPIUM (NEB) 3 ML AMP HHN ×2 (13:33→20:00)
[2018-07-22] MEDS: METHYLPREDNISOLONE 125 MG INJ IV ×2 (14:14→21:18)
[2018-07-22] MEDS: CLONIDINE 0.1 MG/24 HR PATCH TRANSDERM (14:15)
[2018-07-22 14:46] LABS: ANION GAP 5 (5-13); BLOOD UREA NITROGEN 20 mg/dl (7-20); CALCIUM 8.8 mg/dl (8.4-10.2); CARBON DIOXIDE 27 mmol/L (21-31); CHLORIDE 110 mmol/L (97-110); CREATININE 1.25 mg/dl (0.44-1.00); GLUCOSE 112 mg/dl (70-220); SODIUM 142 mmol/L (135-144)
[2018-07-22 14:53] LABS: POTASSIUM 5.3 mmol/L (3.5-5.1)
[2018-07-22] MEDS ORDERED: NA POLYST SULFON 15 GM/60 ML BTL PO (16:00)
[2018-07-22] MEDS: NA POLYST SULFON 15 GM/60 ML BTL PR (16:50)
[2018-07-22] MEDS: hydrALAzine 20 MG INJ IV (17:35)
[2018-07-22 20:42] LABS: Allen Test ACCEPTAB; Arterial Base Excess -1.7 mmol/L (-3.0-3); Arterial Blood Gas Oxygen Sat 97.8 mmHG (95.0-100.0); Arterial COHb 0.1 % (0.0-3.0); Arterial Fraction of Oxyhgb 97.5 % (93.0-99.0); Arterial HCO3 21.6 mmol/L (22.0-26.0); Arterial MetHb 0.2 % (0.0-1.5); Arterial pCO2 31.5 mmhg (35-45); MODE NASAL CANNULA; Site Right Radial
[2018-07-22] MEDS: TERAZOSIN 2 MG CAP PO (20:51)
[2018-07-22] MEDS: ATORVASTATIN 20 MG TAB PO (20:51)
[2018-07-22] MEDS: morphine SULFATE/PF (2 MG/2 ML) SYG IV (21:19)
[2018-07-23] MEDS: INSULIN ASPART [NOVOLOG] 3 ML PEN SC ×6 (01:33→20:43)
[2018-07-23 04:54] LABS: ADD MAN DIFF? NO
[2018-07-23] MEDS: PANTOPRAZOLE 40 MG INJ IV (05:09)
[2018-07-23] MEDS: METHYLPREDNISOLONE 125 MG INJ IV (05:10)
[2018-07-23 05:15] LABS: ABNORMAL IP MESSAGE 1; HEMATOCRIT 27.9 % (37.0-47.0); HEMOGLOBIN 8.9 g/dl (12.0-16.0); LYMPHOCYTES # 0.6 10^3/ul (0.8-2.9); LYMPHOCYTES % 20.4 % (15.0-51.0); MEAN CORPUSCULAR HEMOGLOBIN 29.9 pg (29.0-33.0); MEAN CORPUSCULAR HGB CONC 31.9 g/dl (32.0-37.0); MEAN CORPUSCULAR VOLUME 93.6 fl (82.0-101.0); MEAN PLATELET VOLUME 12.6 fl (7.4-10.4); MONOCYTE # 0.1 10^3/ul (0.3-0.9); NEUTROPHILS % 75.5 % (39.0-77.0); PLATELET COUNT 158 10^3/UL (140-415); RED BLOOD COUNT 2.98 10^6/ul (4.20-5.40); RED CELL DISTRIBUTION WIDTH 14.6 % (11.5-14.5)
[2018-07-23 05:15] LABS: WHITE BLOOD COUNT 2.7 10^3/ul (4.8-10.8)
[2018-07-23] MEDS: morphine SULFATE/PF (2 MG/2 ML) SYG IV ×2 (05:18→11:48)
[2018-07-23 05:20] LABS: POSITIVE DIFF @See below
[2018-07-23 05:22] LABS: ANION GAP 9 (5-13); BLOOD UREA NITROGEN 26 mg/dl (7-20); CALCIUM 9.2 mg/dl (8.4-10.2); CARBON DIOXIDE 21 mmol/L (21-31); CHLORIDE 114 mmol/L (97-110); CREATININE 1.32 mg/dl (0.44-1.00); GLUCOSE 145 mg/dl (70-220); POTASSIUM 5.5 mmol/L (3.5-5.1); SODIUM 144 mmol/L (135-144)
[2018-07-23 05:52] LABS: TROPONIN-I 0.145 ng/ml (0.000-0.120)
[2018-07-23] MEDS: ALBUTEROL/IPRATROPIUM (NEB) 3 ML AMP HHN ×3 (07:50→20:56)
[2018-07-23] MEDS: NICOTINE (21 MG/24 HR) PATCH TRANSDERM (09:00)
[2018-07-23] MEDS: PREGABALIN 50 MG CAP PO (09:55)
[2018-07-23] MEDS: ASPIRIN 81 MG TAB PO (09:55)
[2018-07-23] MEDS: AMLODIPINE 10 MG TAB PO (09:56)
[2018-07-23] MEDS: SENNA TAB PO ×2 (09:56→20:27)
[2018-07-23] MEDS: LISINOPRIL 20 MG TAB PO (09:57)
[2018-07-23] MEDS: HEPARIN 5,000 UNIT/1 ML VIAL SC ×2 (10:04→20:43)
[2018-07-23] MEDS: NA POLYST SULFON 15 GM/60 ML BTL PO (12:48)
[2018-07-23] MEDS ORDERED: traMADol-APAP 37.5-325 1 TAB PO (17:30)
[2018-07-23] MEDS: TERAZOSIN 2 MG CAP PO (20:26)
[2018-07-23] MEDS: ATORVASTATIN 20 MG TAB PO (20:27)
[2018-07-23] MEDS: METHYLPREDNISOLONE 40 MG INJ IV (21:23)
[2018-07-23] MEDS: PREGABALIN 100 MG CAP PO (21:27)
[2018-07-23] MEDS: DIPHENHYDRAMINE 50 MG INJ IV (23:55)
[2018-07-24] MEDS: INSULIN ASPART [NOVOLOG] 3 ML PEN SC ×8 (01:11→20:58)
[2018-07-24] MEDS: PANTOPRAZOLE 40 MG INJ IV (05:10)
[2018-07-24 06:19] LABS: ADD MAN DIFF? NO
[2018-07-24 06:22] LABS: WHITE BLOOD COUNT 5.3 10^3/ul (4.8-10.8)
[2018-07-24 06:22] LABS: ABNORMAL IP MESSAGE 1; HEMATOCRIT 27.7 % (37.0-47.0); HEMOGLOBIN 8.8 g/dl (12.0-16.0); LYMPHOCYTES # 0.6 10^3/ul (0.8-2.9); MEAN CORPUSCULAR HEMOGLOBIN 29.8 pg (29.0-33.0); MEAN CORPUSCULAR HGB CONC 31.8 g/dl (32.0-37.0); MEAN CORPUSCULAR VOLUME 93.9 fl (82.0-101.0); MEAN PLATELET VOLUME 12.5 fl (7.4-10.4); MONOCYTE # 0.2 10^3/ul (0.3-0.9); NEUTROPHIL # 4.5 10^3/ul (1.6-7.5); NEUTROPHILS % 84.4 % (39.0-77.0); PLATELET COUNT 164 10^3/UL (140-415); RED BLOOD COUNT 2.95 10^6/ul (4.20-5.40); RED CELL DISTRIBUTION WIDTH 14.8 % (11.5-14.5)
[2018-07-24 06:29] LABS: POSITIVE DIFF @See below
[2018-07-24 06:59] LABS: ANION GAP 5 (5-13); BLOOD UREA NITROGEN 34 mg/dl (7-20); CALCIUM 9.1 mg/dl (8.4-10.2); CARBON DIOXIDE 26 mmol/L (21-31); CHLORIDE 107 mmol/L (97-110); CREATININE 1.46 mg/dl (0.44-1.00); GLUCOSE 248 mg/dl (70-220); POTASSIUM 5.1 mmol/L (3.5-5.1); SODIUM 138 mmol/L (135-144)
[2018-07-24] MEDS: ALBUTEROL/IPRATROPIUM (NEB) 3 ML AMP HHN ×3 (07:53→20:40)
[2018-07-24 08:37] LABS: TROPONIN-I 0.128 ng/ml (0.000-0.120)
[2018-07-24] MEDS ORDERED: traMADol 50 MG TAB PO (09:00)
[2018-07-24] MEDS: ASPIRIN 81 MG TAB PO (09:40)
[2018-07-24] MEDS: METHYLPREDNISOLONE 40 MG INJ IV ×2 (09:40→20:49)
[2018-07-24] MEDS: AMLODIPINE 10 MG TAB PO (09:41)
[2018-07-24] MEDS: SENNA TAB PO ×2 (09:41→20:49)
[2018-07-24] MEDS: LISINOPRIL 20 MG TAB PO (09:42)
[2018-07-24] MEDS: HEPARIN 5,000 UNIT/1 ML VIAL SC ×2 (09:51→20:58)
[2018-07-24] MEDS: NICOTINE (21 MG/24 HR) PATCH TRANSDERM (09:54)
[2018-07-24] MEDS ORDERED: NA PHOSPHATE/BIPHOS 133 ML ENEMA PR (11:00)
[2018-07-24] MEDS ORDERED: TIZANIDINE 2 MG TAB PO (11:00)
[2018-07-24] MEDS: ASCORBIC ACID 500 MG TAB PO (13:37)
[2018-07-24] MEDS: CEFEPIME 1GM/50 ML (PMX) 50 ML IVPB ×2 (13:37→20:51)
[2018-07-24] MEDS: MULTIVITAMINS THERAPEUTIC TAB PO (13:52)
[2018-07-24] MEDS: ZINC SULFATE 220 MG CAP PO (13:52)
[2018-07-24] MEDS: LACTULOSE 30ML CUP PO ×2 (14:02→22:47)
[2018-07-24] MEDS: ATORVASTATIN 20 MG TAB PO (20:50)
[2018-07-24] MEDS: TERAZOSIN 2 MG CAP PO (20:50)
[2018-07-24] MEDS: INSULIN GLARGINE [LANTus] (100 UNITS/ML) SYG SC (20:58)
[2018-07-24] MEDS: PREGABALIN 100 MG CAP PO (21:05)
[2018-07-24] MEDS: DIPHENHYDRAMINE 50 MG INJ IV (22:48)
[2018-07-25] MEDS: ACCU-CHEK XX (01:59)
[2018-07-25] MEDS: INSULIN ASPART [NOVOLOG] 3 ML PEN SC ×7 (01:59→12:35)
[2018-07-25] MEDS: LACTULOSE 30ML CUP PO ×2 (06:38→13:27)
[2018-07-25] MEDS: PANTOPRAZOLE 40 MG INJ IV (06:38)
[2018-07-25 06:41] LABS: ADD MAN DIFF? NO
[2018-07-25 06:48] LABS: ABNORMAL IP MESSAGE 1; HEMATOCRIT 27.1 % (37.0-47.0); HEMOGLOBIN 8.7 g/dl (12.0-16.0); LYMPHOCYTES # 0.3 10^3/ul (0.8-2.9); LYMPHOCYTES % 6.2 % (15.0-51.0); MEAN CORPUSCULAR HGB CONC 32.1 g/dl (32.0-37.0); MEAN CORPUSCULAR VOLUME 93.4 fl (82.0-101.0); MEAN PLATELET VOLUME 12.6 fl (7.4-10.4); MONOCYTE # 0.1 10^3/ul (0.3-0.9); MONOCYTES % 2.6 % (0.0-11.0); NEUTROPHIL # 4.2 10^3/ul (1.6-7.5); NEUTROPHILS % 90.8 % (39.0-77.0); PLATELET COUNT 172 10^3/UL (140-415); RED CELL DISTRIBUTION WIDTH 14.4 % (11.5-14.5)
[2018-07-25 06:48] LABS: WHITE BLOOD COUNT 4.7 10^3/ul (4.8-10.8)
[2018-07-25 06:54] LABS: POSITIVE DIFF @See below
[2018-07-25 07:05] LABS: ANION GAP 8 (5-13); BLOOD UREA NITROGEN 39 mg/dl (7-20); CALCIUM 8.8 mg/dl (8.4-10.2); CARBON DIOXIDE 25 mmol/L (21-31); CHLORIDE 107 mmol/L (97-110); CREATININE 1.34 mg/dl (0.44-1.00); GLUCOSE 300 mg/dl (70-220); POTASSIUM 4.5 mmol/L (3.5-5.1); SODIUM 140 mmol/L (135-144)
[2018-07-25] MEDS: ALBUTEROL/IPRATROPIUM (NEB) 3 ML AMP HHN ×2 (08:00→14:00)
[2018-07-25] MEDS: ASCORBIC ACID 500 MG TAB PO (08:42)
[2018-07-25] MEDS: METHYLPREDNISOLONE 40 MG INJ IV (08:42)
[2018-07-25] MEDS: ASPIRIN 81 MG TAB PO (08:42)
[2018-07-25] MEDS: SENNA TAB PO (08:42)
[2018-07-25] MEDS: CEFEPIME 1GM/50 ML (PMX) 50 ML IVPB (08:42)
[2018-07-25] MEDS: MULTIVITAMINS THERAPEUTIC TAB PO (08:42)
[2018-07-25] MEDS: AMLODIPINE 10 MG TAB PO (08:43)
[2018-07-25] MEDS: NICOTINE (21 MG/24 HR) PATCH TRANSDERM (08:47)
[2018-07-25] MEDS: HEPARIN 5,000 UNIT/1 ML VIAL SC (08:47)
[2018-07-25] MEDS: ZINC SULFATE 220 MG CAP PO (09:00)
[2018-07-25] MEDS: hydrALAzine 20 MG INJ IV (16:44)
[2018-07-25] MEDS: PREGABALIN 100 MG CAP PO (20:27)
== END 2018-07-25 20:50 | disposition home or self-care (01) | DRG 91 ==
LOC: TEL 07-23 13:24 → E/R 13:04 → TEL 07-23 22:48 → ICU 14:35
PROC: 5A09457 Assistance with Respiratory Ventilation, 24-96 Consecutive Hours, Continuous Positive Airway Pressure (ICD-10-PCS; principal; 2018-07-21)
DX: G92 Toxic encephalopathy (principal); J96.02 Acute respiratory failure with hypercapnia; I21.A1 Myocardial infarction type 2; J96.01 Acute respiratory failure with hypoxia; N39.0 Urinary tract infection, site not specified; J44.1 Chronic obstructive pulmonary disease with (acute) exacerbation; I13.0 Hypertensive heart and chronic kidney disease with heart failure and stage 1 through stage 4 chronic kidney disease, or unspecified chronic kidney disease; I50.30 Unspecified diastolic (congestive) heart failure; N18.9 Chronic kidney disease, unspecified; B96.89 Other specified bacterial agents as the cause of diseases classified elsewhere; D63.8 Anemia in other chronic diseases classified elsewhere; E87.5 Hyperkalemia; E11.51 Type 2 diabetes mellitus with diabetic peripheral angiopathy without gangrene; E11.22 Type 2 diabetes mellitus with diabetic chronic kidney disease; E11.65 Type 2 diabetes mellitus with hyperglycemia; F41.9 Anxiety disorder, unspecified; G89.29 Other chronic pain; T40.2X5A Adverse effect of other opioids, initial encounter; T42.4X5A Adverse effect of benzodiazepines, initial encounter; T42.8X5A Adverse effect of antiparkinsonism drugs and other central muscle-tone depressants, initial encounter; Z66 Do not resuscitate; Z89.511 Acquired absence of right leg below knee; Z87.11 Personal history of peptic ulcer disease; Z95.0 Presence of cardiac pacemaker; Z87.891 Personal history of nicotine dependence; Z79.891 Long term (current) use of opiate analgesic; Z79.899 Other long term (current) drug therapy; Z79.84 Long term (current) use of oral hypoglycemic drugs
CPT/HCPCS: 36600; 70450; 70496; 70498; 71045; 80048; 80053; 80061; 80307; 81001; 82550; 82553; 82803; 82962; 83036; 83605; 83690; 83735; 84100; 84443; 84484; 85025; 85610; 85730; 86850; 86900; 86901; 87040; 87081; 87086; 92526; 92610; 93005; 93971; 94640; 94660; 97167; 99291-25